=== PATIENT | female | born 1950 | race Hispanic/Latino ===

== ENCOUNTER 2017-04-29 11:47 | Emergency (ER) | payer MEDICARE, MEDICAID ==
[2017-04-29 11:57] VITALS: BP 136/68; PULSE 75; RESP 20; TEMP 98; O2SAT 99
--- NOTE | 2017-04-29 12:40 | ED PDOC ---
HPI: Trauma/Fall - HPI Chief Complaint (Provider): Trauma History Per: Patient History/Exam Limitations: no limitations Onset/Duration Of Symptoms: Hrs Injury Occurred (Timing): Just Before Arrival Location Of Injury: Right: Hand, Anterior: Hand Severity: Mild Associated Symptoms: denies: Dizziness Additional Complaint(s): 66 y/o female patient presenting to the ED with an injured extremity to the right hand. Pt states she was at her grandson field day and as she was walking through the grass she tripped and fell as she was preparing to step on the pavement. She states she has right hand pain but denies any dizziness or headache. - Fall Fall:Prior To Injury: Tripped <Eva Story - Last Filed: 04/29/17 12:59> <Rachel Mauricio - Last Filed: 04/29/17 13:53> - HPI Time Seen by Provider: 04/29/17 12:09 Chief Complaint (Nursing): Trauma Past Medical History Reviewed: Historical Data, Nursing Documentation, Vital Signs Vital Signs: Last Vital Signs Temp 98.0 F 04/29/17 11:55 Pulse 75 04/29/17 11:55 Resp 20 04/29/17 11:55 BP 136/68 04/29/17 11:55 Pulse Ox 99 04/29/17 11:55 - Medical History PMH: Hypothyroidism - Surgical History Surgical History: No Surg Hx - Family History Family History: States: Unknown Family Hx <Eva Story - Last Filed: 04/29/17 12:59> Vital Signs: Last Vital Signs Temp 98.0 F 04/29/17 11:55 Pulse 75 04/29/17 11:55 Resp 20 04/29/17 11:55 BP 136/68 04/29/17 11:55 Pulse Ox 99 04/29/17 13:02 <Rachel Mauricio - Last Filed: 04/29/17 13:53> - Allergies Allergies/Adverse Reactions: Allergies Allergy/AdvReac Type Severity Reaction Status Date / Time No Known Allergies Allergy Verified 04/29/17 11:54 Review of Systems ROS Statement: Except As Marked, All Systems Reviewed And Found Negative Constitutional: Negative for: Fever, Chills Musculoskeletal: Positive for: Hand Pain ((+)right hand pain ) <Eva Story - Last Filed: 04/29/17 12:59> Physical Exam - Reviewed Nursing Documentation Reviewed: Yes Vital Signs Reviewed: Yes - Physical Exam Appears: Positive for: Non-toxic, No Acute Distress Skin: Positive for: Warm. Negative for: Normal Color (Edema and ecchymosis of the thenar eminence, right; redness right foot ) Eye Exam: Positive for: Normal appearance ENT: Positive for: Normal ENT Inspection Neck: Positive for: Normal Respiratory: Negative for: Accessory Muscle Use, Respiratory Distress Pulses-Radial (L): 2+ Pulses-Radial (R): 2+ Extremity: Positive for: Other ((+)Snuff box tenderness, edema, eccomossis, swelling to the thenar of the right hand ). Negative for: Normal ROM ((+) Decreased ROM in Right Hand, ecchymosis, edema) Neurologic/Psych: Positive for: Alert, Oriented. Negative for: Motor/Sensory Deficits Comments: PT refuses pain medication <Eva Story - Last Filed: 04/29/17 12:59> - ECG O2 Sat by Pulse Oximetry: 99 (RA) Pulse Ox Interpretation: Normal <Eva Story - Last Filed: 04/29/17 12:59> Medical Decision Making Medical Decision Making: Time:1220 Initial impression: Right Hand Injury, Right foot Initial plan: --Right hand 2 views X-Ray --Patient refuses pain medication Scribe Attestation: Documented by Jacki Berg acting as a scribe for TAYLOR Herring MD Scribe Attestation: All medical record entries made by the Scribe were at my direction and personally dictated by me. I have reviewed the chart and agree that the record accurately reflects my personal performance of the history, physical exam, medical decision making, and the department course for this patient. I have also personally directed, reviewed, and agree with the discharge instructions and disposition. <Eva Story - Last Filed: 04/29/17 12:59> Medical Decision Making: Xray read as negative but given return instructions for scaphoid fracture due to need for repeat xray <Rachel Mauricio - Last Filed: 04/29/17 13:53> Disposition - Patient ED Disposition Is Patient to be Admitted: No Counseled Patient/Family Regarding: Diagnosis, Need For Followup - Disposition Disposition: Routine/Home Disposition Time: 13:00 <Eva Story - Last Filed: 04/29/17 12:59> <Rachel Mauricio - Last Filed: 04/29/17 13:53> - Clinical Impression Clinical Impression: Hand injury - Disposition Referrals: Desiree Mccloud MD [Staff Provider] - Condition: GOOD Additional Instructions: Ice, elevation, motrin/ Repeat x-ray in 7-10 days. Instructions: Scaphoid Fracture (ED)
--- NOTE | 2017-04-29 12:54 | RAD ---
PROCEDURE: Right Hand Radiographs. HISTORY: fall, snuff box tenderness COMPARISON: None. FINDINGS: BONES: No evidence of fracture. Examination limited due to inclusion of only two views. 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 Mild osteoarthritis at DIP 2 and 5. Mild osteoarthritis at CMC 1. Remaining joint spaces and articular surfaces appear unremarkable. SOFT TISSUES: Normal. OTHER FINDINGS: None. IMPRESSION: No acute fracture. Osteoarthritis as described.
== END 2017-04-29 13:23 | disposition home or self-care (01) ==
LOC: H.ER 11:47
DX: S62.001A Unspecified fracture of navicular [scaphoid] bone of right wrist, initial encounter for closed fracture (principal); W19.XXXA Unspecified fall, initial encounter; Y92.89 Other specified places as the place of occurrence of the external cause